=== PATIENT | male | born 1970 | race Caucasian/White ===

== ENCOUNTER 2020-07-31 06:33 | Day surgery (SDC) | payer MEDICARE ==
[~2020-07-31] VITALS: Ht 177.8 cm; Wt 102.7 kg
--- NOTE | ~2020-07-31 | HEMODYNAMI ---
PATIENT:ANTONIETTA JIMENEZ MEDICAL RECORD: [id number] : 70 LOCATION:[facility] ADMISSION DATE: 07/31/20 Generatedon:18:36 Patient name: ANTONIETTA JIMENEZ Patient #: [id number] SSN: [id number] : 1970 Date of study: 07/31/2020 Page: Of Hemodynamic Procedure Report Patient Data Patient Demographics Procedure consent was obtained First Name: ANTONIETTA Gender: Male Last Name: TONY : 1970 Patient #: [id number] Age: 50 year(s) Race: SSN: [id number] Additional ID: [id number] Contact details [address]: [address] [place] [address] State: [place] City: [place] Zip code: [address] Past Medical History Allergies Allergen Reaction Date Comments Reported Other allergy 07/31/2020 ELIS WILKERSON Admission Admission Data Admission Date: 07/31/2020 Admission Time: 6:33 Arrival Date: 07/31/2020 Arrival Time: 0:00 Admit Source: Other Insurance Payor: Medicare [facility] #: [id number] Height (in.): 70 BSA: 2.2 (m2) Height (cm.): 177.8 BMI: 32.49 (kg/m2) Weight (lbs.): 226.42 Weight (kg.): 102.7 Lab Results Lab Result Date: 07/31/2020 Lab Result Time: 0:00 Biochemistry Name Units Result Min Max BUN mg/dl 16 --(---*)-- 7 18 Creatinine mg/dl 1.1 --(--*-)-- 0.6 1.3 eGFR ml/min 73.36112 *-(----)-- 90 120 NONAFRICAN CBC Name Units Result Min Max Hemoglobin g/dl 15.3 --(-*--)-- 13.5 17.5 Procedure Procedure Types Cath Procedure Diagnostic Procedure LHC LHC w/Coronaries Sedation Charges Moderate Sedation 10-24 minutes PCI Procedure Coronary Stent Coronary Stent Initial Hemochron ACT Test Procedure Description Procedure Date Procedure Date: 07/31/2020 Procedure Start Time: 8:06 Procedure End Time: 8:31 Procedure Staff Name Function Ky Washington MD Performing Physician Estevan Washington RN Nurse Anju Oleary RT Scrub Bella Diallo RT Monitor Indication Chest pain Procedure Data Cath Procedure Fluoroscopy Diagnostic fluoroscopy Total fluoroscopy Time: 5.1 time: 5.1 min min Diagnostic fluoroscopy Total fluoroscopy dose: dose: 1092 mGy 1092 mGy Contrast Material Contrast Material Type Amount (ml) Isovue 300 127 Entry Location Entry Primary Successful Side Size Upsize Upsize Entry Closure Murphy ccessful Closure Location (Fr) 1 (Fr) 2 (Fr) Remarks Device Remarks Radial Right 6 Fr Mechanical artery Short Compression Estimated blood loss: 5 ml Diagnostic catheters Device Type Used For End Catheter Placement DIAGNOSTIC Henderson 110cm 5 Multi-vessel Fr catheter ([id number]) Angiography Procedure Complications No complications Procedure Medications Medication Administration Route Dosage 0.9% NaCl I.V. 100 ml/hr Oxygen etCO2 Nasal cannula 2 l/min Heparin Flush Bag added to field 2 bags (1000units/500ml NS) Lidocaine 2% added to field 20 Radial Cocktail added to field 1 syringe (Verapamil 2mg/Nitro 400mcg/Heparin 1500units) Versed I.V. 2 mg Fentanyl I.V. 100 mcg Radial Cocktail I.A. 1 syringe (Verapamil 2mg/Nitro 400mcg/Heparin 1500units) Heparin Bolus I.V. 21402 units Nitroglycerin IC/IA I.C. 100 mcg Plavix P.O. 600 mg Hemodynamics Rest BSA: 2.2 (m2) HGB: 15.3 (g/dl) O2 Consumption: Estimated: 275.18 (ml/min) O2 Con sumption indexed: Estimated:125.08 (ml/min/m) Heart Rate: 84 (bpm) Pressure Samples Time Site Value (mmHg) Purpose Heart Use Rate(bpm) 8:09 LV 157/34,46 Snapshot 86 8:09 AO 154/42(70) Pullback 90 8:09 LV 149/15,36 Pullback 90 Gradients Valve Time Site 1 Site 2 Mean SEP/DFP Peak To Heart Use (mmHg) (sec/min) Peak Rate (mmHg) (bpm) Aortic 8:09 LV AO 0 28 0 90 149/15,36 154/42(70) Calculations Valve P-P Mean Valve Index Valve Source Name Gradient Area Flow (cm2) Aortic 0 0 0 0 Snapshots Pre Cath Intra NCS Post Cath Vital Signs Time Heart Resp SPO2 etCO2 NIBP (mmHg) Rhythm Pain Sedation Rate (ipm) (%) (mmHg) Status Level (bpm) 7:53:01 84 19 100 25.7 137/88(106) NSR 0 (11) 10(A) , No pain 7:57:15 82 11 94 34.1 122/84(106) NSR 0 (11) 10(A) , No pain 8:01:25 80 19 92 0 112/77(97) NSR 0 (11) 10(A) , No pain 8:05:33 82 10 92 40.1 117/80(97) NSR 0 (11) 10(A) , No pain 8:09:45 98 10 93 30.3 99/60(94) NSR 0 (11) 10(A) , No pain 8:13:50 85 11 92 34.8 112/73(92) NSR 0 (11) 10(A) , No pain 8:18:04 81 11 93 38.6 111/63(97) NSR 0 (11) 10(A) , No pain 8:22:18 88 12 92 0 105/63(86) NSR 0 (11) 10(A) , No pain 8:26:26 87 12 93 22.7 107/69(88) NSR 0 (11) 10(A) , No pain 8:30:32 87 12 95 17.4 116/77(97) NSR 0 (11) 10(A) , No pain Medications Time Medication Route Dose Verified Delivered Reason Note s Effectiveness by by 7:56:39 0.9% NaCl I.V. 100 Estevan Estevan Per physician ml/hr Felix Washington RN RN 7:56:49 Oxygen etCO2 2 l/min Estevan Estevan for low 02 sats Nasal Felix Washington cannula RN RN 7:57:02 Heparin Flush added 2 bags Estevan Estevan used for Bag to Felix Washington procedure (1000units/500ml field RN RN NS) 7:57:13 Lidocaine 2% added 20ml Estevan Estevan for local to vial Lorigan Lorigan anesthetic RN RN 7:57:23 Radial Cocktail added 1 Estevan Estevan used for (Verapamil to syringe Felix Washington procedure 2mg/Nitro field RN RN 400mcg/Heparin 1500units) 7:57:33 Versed I.V. 2 mg Estevan Estevan for sedation Felix Washington RN RN 7:57:42 Fentanyl I.V. 100 mcg Estevan Estevan for sedation Felix Washington RN RN 8:08:04 Radial Cocktail I.A. 1 Estevan Ky for (Verapamil syringe Felix Washington MD vasodilation 2mg/Nitro RN 400mcg/Heparin 1500units) 8:18:06 Heparin Bolus I.V. 10,000 Estevan Estevan for units Felix Washington anticoagulation RN RN 8:20:33 Nitroglycerin I.C. 100 mcg Estevan Ky for IC/IA Felix Washington MD vasodilation RN 8:28:02 Plavix P.O. 600 mg Estevan Ky for Felix Washington MD antiplatelet RN therapy Procedure Log Time Note 7:14:05 Diagnostic Cath Status : Elective 7:14:15 Indication : Chest pain 7:17:51 Arrival Date: 07/31/2020 12:00:00 AM 7:17:52 Admit Source: Other 7:17:58 Insurance Payor : Medicare 7:18:17 Patient Height : 70 inches 7:18:19 Patient Weight : 226.42 lbs 7:18:25 ACC Patient presents with Stable Angina CCS Anginal Class 2--Slight limitation of ordinary activity. 7:18:27 Procedure Status Elective Heart Cath (OP). 7:18:29 Time tracking: Regular hours (M-F 7:00 - 5:00) 7:18:34 Plan of Care:Hemodynamics will remain stable., Cardiac rhythm will remain stable., Comfort level will be maintained., Respiratory function will remain adequate., Patient/ family verbilizes understanding of procedure., Procedure tolerated without complication., Recovers from procedure without complications.. 7:18:47 H&P Date Dictated: 07/30/2020 Within 30 days and on chart.. 7:18:49 Pre-procedure instructions explained to patient. 7:18:50 Pre-op teaching completed and patient verbalized understanding. 7:18:53 Family unavailable. 7:18:56 Patient NPO since Midnight. 7:19:41 Patient allergic to Other allergyCODEINE, PCN 7:31:15 Estevan Washington RN sent for patient. Start room use. 7:51:25 Patient received from Pre/Post Procedure Room to CCL 1 Alert and oriented. Tansferred to table in Supine position. 7:51:27 Signed procedure consent form obtained from patient. 7:51:28 Warm blankets applied, and aranza hugger turned on for patient comfort. 7:51:29 Correct patient and procedure confirmed by team. 7:51:34 ECG and BP/O2 sat monitors applied to patient. 7:51:35 Baseline sample Acquired. 7:51:35 Vital chart was started 7:51:40 Rhythm: sinus tachycardia 7:51:45 Is the patient allergic to Iodine/contrast media? No. 7:51:46 Was the patient premedicated? Yes 7:51:47 Is patient on blood thinner?No 7:51:49 Patient diabetic? No. 7:51:52 Previous problem with sedation/anesthesia? No ? 7:52:01 Snore? No 7:52:03 Sleep apnea? No 7:52:05 Deviated septum? No 7:52:07 Opens mouth fully? Yes 7:52:08 Sticks out tongue? Yes 7:52:10 Airway obstruction? No ? 7:52:16 Dentures? Yes IN TIGHT 7:52:27 Pre procedure: right dorsailis pedis pulse 2+ Normal; easily identifiable; not easily obliterated 7:52:29 Pre procedure: left dorsailis pedis pulse 2+ Normal; easily identifiable; not easily obliterated 7:52:33 Patient pain scale 0/10 ?. 7:52:43 IV patent on arrival in right antecubital with 0.9% NaCl at O. 7:52:45 Lab results completed and on chart. 7:52:53 Right Radial & Right Groin area was prepped with chlora-prep and draped in sterile fashion 7:52:54 Alarms reviewed by R. N. 7:52:55 Sharps counted by scrub and verified by R.N. 7:52:57 Physician arrived 7:52:57 --------ALL STOP TIME OUT------ 7:52:57 Final Timeout: patient, procedure, and site verified with staff and physician. All members of the team are in agreement. 7:52:59 Right Radial & Right Groin site verified by team. 7:53:05 Fire Safety Assessment: A--An alcohol-based skin anteseptic being used preoperatively., C--Open oxygen or nitrous oxide is being used., D--An ESU, laser, or fiber-optic light is being used. 7:53:08 Physical assessment completed. ASA score P 2 - A patient with mild systemic disease as per Ky Washington MD. 7:53:16 Sedation plan: IV Moderate Sedation Medication:Versed, Fentanyl 7:56:39 0.9% NaCl 100 ml/hr I.V. was administered by Estevan Washington RN; Per physician; Verbal order read back and verified. 7:56:49 Oxygen 2 l/min etCO2 Nasal cannula was administered by Estevan Washington RN; for low 02 sats; Verbal order read back and verified. 7:57:02 Heparin Flush Bag (1000units/500ml NS) 2 bags added to field was administered by Estevan Washington RN; used for procedure; Verbal order read back and verified. 7:57:13 Lidocaine 2% 20ml vial added to field was administered by Estevan Washington RN; for local anesthetic; Verbal order read back and verified. 7:57:23 Radial Cocktail (Verapamil 2mg/Nitro 400mcg/Heparin 1500units) 1 syringe added to field was administered by Estevan Washington RN; used for procedure; Verbal order read back and verified. 7:57:33 Versed 2 mg I.V. was administered by Estevan Washington RN; for sedation; Verbal order read back and verified. 7:57:42 Fentanyl 100 mcg I.V. was administered by Estevan Washington RN; for sedation; Verbal order read back and verified. 7:57:54 2) 60-89 Mildly reduced kidney function, and other findings (as for stage 1) point to kidney disease. 7:58:20 Maximum allowable contrast dose (3.7 X eGFR X 0.75)208 ml. 7:59:14 Lab Result : BUN 16 mg/dl 7:59:14 Lab Result : eGFR NONAFRICAN 73.90845 ml/min 7:59:14 Lab Result : Hemoglobin 15.3 g/dl 7:59:14 Lab Result : Creatinine 1.1 mg/dl 8:01:06 Risk of Mortality: 0.1 8:01:09 Risk of blood transfusion: 0.1 8:01:13 Risk of DELORIS: 0.2 8:01:21 Use device set Radial Dx or PCI 8:01:22 ACIST Syringe (30443) opened to sterile field. 8:01:23 Medline Cath Pack ([id number]) opened to sterile field. 8:01:23 Bag Decanter (2002S) opened to sterile field. 8:01:23 ACIST Hand Control (85059) opened to sterile field. 8:01:24 ACIST Manifold (86281) opened to sterile field. 8:01:24 Tegaderm 4 x 4 (1626W) opened to sterile field. 8:01:25 MBrace Wrist Support (262291595) opened to sterile field. 8:01:26 NEEDLE Cook 21G 4cm Radial (W98250) opened to sterile field. 8:01:27 SHEATH 6FR RAIN (4300138) opened to sterile field. 8:01:28 EMERALD Guide Wire (924-642) opened to sterile field. 8:05:27 Procedure started. 8:05:27 Full Disclosure recording started 8:06:19 Local anesthetic to right radial artery with Lidocaine 2% by Ky Washington MD.INITIAL ACCESS ONLY 8:07:51 A 6 Fr Short sheath was inserted into the Right Radial artery 8:08:04 Radial Cocktail (Verapamil 2mg/Nitro 400mcg/Heparin 1500units) 1 syringe I.A. was administered by Ky Washington MD; for vasodilation; Verbal order read back and verified. 8:09:19 A DIAGNOSTIC Henderson 110cm 5 Fr catheter (287752) was advanced over the wire and used for Multi-vessel Angiography. 8:09:24 LV hemodynamics recorded. 8:09:26 Injector settings: Ml/sec: 5, Volume: 15, 8:09:34 EF : 60 % 8:10:10 LCA angiography performed. 8:10:13 Injector settings: Ml/sec: 3, Volume: 6, 8:12:28 RCA angiography performed. 8:13:43 Injector settings: Ml/sec: 3, Volume: 6, 8:13:46 Catheter removed. 8:15:20 INFLATOR Merit BasixCompak (HJ0436) opened to sterile field. 8:15:20 BMW 300cm Dexter 2 J wire (5747107F) opened to sterile field. 8:15:21 TUBING High Pressure Extension Tubing (Felix) (AH6745R) opened to sterile field. 8:15:21 GUIDE 6FR AR 1.0 catheter ([id number]) opened to sterile field. 8:15:27 Proceeding to intervention. 8:15:34 ACC Pre-intervention ОЛЕГ Flow is 3. 8:15:42 Pre PCI Site: [place] mRCA has 90% stenosis. 8:15:46 6 Fr AR 1 guide catheter was inserted over the wire 8:15:51 BMW wire advanced. 8:18:06 Heparin Bolus 10,000 units I.V. was administered by Estevan Washington RN; for anticoagulation; Verbal order read back and verified. 8:19:46 Wire advanced across lesion. 8:20:33 Nitroglycerin IC/IA 100 mcg I.C. was administered by Ky Washington MD; for vasodilation; Verbal order read back and verified. 8:25:02 Place stent Inflation Number: 1 A LAWANDA OTW 2.5 x 22 stent ([id number]) was prepped and advanced across the Prox RCA 90. The stent was deployed at 12 JAMI for 0:10 (min:sec) 0. 8:25:58 Stent catheter was removed intact over wire. 8:25:58 Wire removed. 8:25:59 Guide catheter removed. 8:26:29 Sheath removed intact; hemostasis achieved with Mechanical Compression to the Right Radial artery. 8:26:32 Procedure ended.(Physican Out) 8:26:50 Fluoroscopy time 05.10 minutes. 8:26:54 Fluoroscopy dose: 1092 mGy 8:26:54 Flurop Dose total: 1092 8:27:00 Dose Area Product 00691 mGy/cm. 8:27:06 Contrast amount:Isovue 300 127ml. 8:27:12 Maximum allowable dose exceeded? No. 8:27:14 Sharps counted by scrub and verified by R.N. 8:28:02 Plavix 600 mg P.O. was administered by Ky Washington MD; for antiplatelet therapy; Verbal order read back and verified. 8:28:02 [place] band inflated with 10cc of air. 8:28:05 ZEPHYR REGULAR TR BAND (574421) opened to sterile field. 8:28:55 Insertion/operative site no bleeding no hematoma. 8:29:07 Post right radial artery:stable 8:29:09 Post Procedure Pulses reassessed and unchanged 8:29:13 Post procedure rhythm: unchanged. 8:29:16 Estimated blood loss: 5 ml 8:29:17 Post procedure instruction explained to patient.Patient verbalizes understanding. 8:29:18 Patient needs reinforcement of post procedure teaching. 8:30:45 Procedure type changed to Cath procedure, Diagnostic procedure, LHC, [facility] w/Coronaries, Sedation Charges, Moderate Sedation 10-24 minutes, PCI procedure, Coronary Stent, Coronary Stent Initial, Hemochron ACT Test 8:30:46 Procedure and supply charges have been captured, reviewed, submitted and are correct. 8:30:51 Procedure Complication : No complications 8:31:21 Vital chart was stopped 8:31:27 [facility] Findings: MVD- PCI performed (see procedure note) 8:31:28 Operative report dictated upon procedure completion. 8:31:29 See physician's report for complete and final results. 8:31:32 Report given to Pre/Post Procedure Room. 8:31:35 Patient transfered to Pre/Post Procedure Room with Stretcher. 8:31:39 Procedure ended. 8:31:39 Full Disclosure recording stopped 8:31:50 ACC-PCI Only Patient was given prescriptions, or instructed by Ky Washington MD to start/continue the following medications upon discharge: Plavix 8:31:51 End room use (Document Last) 8:32:21 ACT drawn and resulted at >400 high out of range seconds. (normal therapeutic range 180-240 seconds). Intervention Summary Intervention Notes Time ActionType Lesion and Equipment Action# Pressure Duration Attributes Used 8:25:02 Place stent Prox RCA LAWANDA OTW 2.5 1 12 00:10 x 22 stent ([id number]) Device Usage Item Name Manufacture Quantity Catalog Hospital Part Current Mini mal Lot# / Number Charge Number Stock Stock Serial# Code ACIST Syringe Acist 1 70379 419525 055640 818309 20 (14436) Etece Medline Cath Medline 1 [id number] 571709 13055 125449 5 Pack ([id number]) Bag Decanter Microtek 1 2001S 159146 48435 351594 5 (2001S) Medical Inc. ACIST Hand Acist 1 20083 152692 530043 059553 5 Control Medical (37895) Systems Inc ACIST Acist 1 61336 111005 024354 475758 5 Manifold Medical (46885) Systems Inc Tegaderm 4 x 3M 1 1626W 532704 262706 245790 5 4 (1626W) MBrace Wrist Advanced 1 140-0250-00 718251 76771 487729 5 Support Vascular (879683514) Dynamics NEEDLE Fifty100 Medical 1 Q02823 105240 987169 176612 5 21G 4cm Radial (C06286) SHEATH 6FR Cardinal 1 1701382 602881 5904511 347497 5 [facility] (5533672) EMERALD Guide Cardinal 1 502-382 623075 951966 125717 5 [facility] (882-746) DIAGNOSTIC Terumo 1 40-1713 887599 131895 768104 5 Henderson 110cm 5 Fr catheter (592665) INFLATOR Merit 1 MC1464 799120 501138 403229 15 [facility] Medical BasixCompak (OH1078) BMW 300cm Tay 1 [id number] 367265 867382 721953 5 Dexter 2 J Vascular wire (6025882F) TUBING High Merit 1 EU5226N 259554 16209 398071 10 Pressure Medical Extension Tubing (Washington) (YL8267Y) GUIDE 6FR AR Medtronic 1 BJ6SV40 038750 89996 472847 1 1.0 catheter (BN0EU15) LAWANDA OTW 2.5 Medtronic 1 [id number] 326853 69060 708072 5 [id number] x 22 stent ([id number]) ZEPHYR Cardinal 1 075172 683611 6896775 814657 5 REGULAR TR Health BAND (901066) Signature Audit Adams Stage Time Signature Unsigned Intra-Procedure 07/31/2020 Bella Diallo 8:35:42 AM RT(R) Intra-Procedure 07/31/2020 Estevan 8:36:02 AM Felix GABRIEL Intra-Procedure 07/31/2020 Ky Washington MD 8:36:24 AM [place] [id number] [place] [address]
[~2020-07-31 06:33] MED LIST: ALBUTEROL SULF8.5 GM INH; CLOZARIL100 MG; FLUVOXAMINE MA100 M1; HYDROXYZINE HCL50 MG; OMNICEF300 MG PO; TRAZODONE HCL150 MG
[2020-07-31] MEDS ORDERED: TRAZODONE HCL100 MG PO (06:59)
[2020-07-31] MEDS ORDERED: CLOZAPINE200 MG PO (07:01)
[2020-07-31] MEDS ORDERED: FLUVOXAMINE MAL50 MG PO (07:02)
[2020-07-31] MEDS ORDERED: VISTARIL50 MG PO (07:03)
[2020-07-31 07:14] VITALS: BP 128/87; Ht 177.8 cm; Wt 102.7 kg
[2020-07-31 07:46] LABS: ALT (SGPT) 31 U/L (10-68); CALC OSMOLALITY 284 mosm/kg (275-300); CALCIUM 8.6 mg/dL (8.5-10.1); CARBON DIOXIDE 24.6 mmol/L (21.0-32.0); CHLORIDE - SERUM 106 mmol/L (98-107); CHOL - HDL RATIO 7.7 ratio (2.3-4.9); CHOLESTEROL, TOTAL 232 mg/dL (0-200); CREATININE - SERUM 1.1 mg/dL (0.6-1.3); GLUCOSE 123 mg/dL (74-106); HDL CHOLESTEROL 30 mg/dL (32-96); LDL CHOLESTEROL 130 mg/dL (0-100); LDL-HDL RATIO 4.3 ratio (1.5-3.5); POTASSIUM - SERUM 3.8 mmol/L (3.5-5.1); SODIUM 142 mmol/L (136-145); TRIGLYCERIDE 360 mg/dL (30-200); UREA NITROGEN 16 mg/dL (7-18); eGFR NON AFRICAN AMERICAN 75 mL/min (90-120)
[2020-07-31 07:48] LABS: BASOPHILS 0.4 % (0-2); HEMATOCRIT 46.9 % (42.0-54.0); HEMOGLOBIN 15.3 g/dL (13.5-17.5); IMMATURE GRANULOCYTES 0.5 % (0-5); LYMPHOCYTE ABS# 2.44 10x3/uL (1.32-3.57); LYMPHOCYTES 22.7 % (15-50); MCH 27.1 pg (26.0-34.0); MCHC 32.6 g/dL (31.0-37.0); MCV 83.2 fL (80.0-100.0); MEAN PLATELET VOLUME 9.7 fL (7.4-10.4); MONOCYTES 6.8 % (2-11); NEUTROPHIL ABS# 7.29 10x3/uL (1.78-5.38); NEUTROPHILS 67.6 % (40-80); PLATELET COUNT 252 10x3/uL (130-400); RBC 5.64 10x6/uL (4.20-6.10); RDW 15.6 % (11.5-14.5); WBC 10.8 10x3/uL (4.8-10.8)
--- NOTE | 2020-07-31 08:45 | NUR ---
PT REC'D TO CATH RECOVERY ROOM 9 VIA STRETCHER. MONITORS ESTAB. SEE POST CATH FINE DINING SERVER. ALARMS ON AND C/L IN REACH.
[2020-07-31] MEDS ORDERED: PLAVIX75 MG PO (08:56)
[2020-07-31] MEDS ORDERED: BAYER CHEWABLE81 MG PO (08:56)
[2020-07-31] MEDS ORDERED: PRAVACHOL20 MG PO (08:57)
--- NOTE | 2020-07-31 09:00 | NUR ---
R WRIST Z BAND SITE C/D/I. NO S/S BLEEDING OR HEMATOMA. R ARM/HAND WARM WITH PALP PULSES AND BRISK CAP REFILL. VSS. PT RESTING QUIETLY, ALARMS ON AND C/L IN REACH.
--- NOTE | 2020-07-31 09:30 | NUR ---
R WRIST Z BAND SITE C/D/I, NO S/S BLEEDING OR HEMATOMA. PULSES PALP. VSS. PT RESTING QUIETLY, NO S/S DISTRESS. ALARMS ON AND C/L IN REACH.
--- NOTE | 2020-07-31 09:45 | NUR ---
R WRIST Z BAND SITE C/D/I, NO S/S BLEEDING, PULSES PALP. VSS. ALARMS ON AND C/L IN REACH.
--- NOTE | 2020-07-31 10:15 | NUR ---
R WRIST SITE C/D/I, NO S/S BLEEDING OR HEMATOMA. PULSES PALP. PT SNORING. VSS. ALARMS ON AND C/L IN REACH.
--- NOTE | 2020-07-31 10:36 | NUR ---
I SPOKE WITH PTS MOTHER RE: DISCHARGE INSTRUCTIONS/MEDICATIONS AND PLAN FOR D/C HOME AT 1230. WILL CALL IN NEW PRESCRIPTIONS TO [facility] ON [facility] PER PT REQUEST.
--- NOTE | 2020-07-31 10:50 | NUR ---
DR. RAGLAND IN TO SEE PT.
--- NOTE | 2020-07-31 11:00 | NUR ---
5 CC AIR REMOVED FROM Z BAND, NO S/S BLEEDING OR HEMATOMA. PULSES PALP. R ARM/HAND WARM WITH PALP PULSES. C/L IN REACH.
--- NOTE | 2020-07-31 11:09 | NUR ---
NEW PRESCRIPTIONS CALLED IN TO [facility] ON [facility]. PT SITTING UP IN BED, GIVEN COLA PER REQUEST, REFUSED SANDWICH AT THIS TIME. C/L IN REACH.
--- NOTE | 2020-07-31 11:25 | NUR ---
ALL AIR REMOVED FROM Z BAND, NO S/S BLEEDING OR HEMATOMA. PULSES PALP. PT INSTRUCTED ON S/S TO REPORT TO NURSE. ALARMS ON AND C/L IN REACH.
--- NOTE | 2020-07-31 11:45 | NUR ---
R WRIST SITE C/D/I, NO S/S BLEEDING OR HEMATOMA. PULSES PALP. VSS. PT DENIES PAIN OR NEEDS. C/L IN REACH.
--- NOTE | 2020-07-31 12:10 | NUR ---
R WRIST SITE C/D/I, NO S/S BLEEDING. PIV D/C'D INTACT, DSG APPLIED. PT ALLOWED UP TO GET DRESSED AND GO TO BR INDEPENDENTLY.
--- NOTE | 2020-07-31 12:24 | NUR ---
ALL DISCHARGE INSTRUCTIONS REVIEWED WITH PT, INCLUDING RESTRICTIONS, MEDS AND F/U APPT. PT VERBALIZES UNDERSTANDING.
--- NOTE | 2020-07-31 12:28 | NUR ---
R Z BAND OFF, DSG APPLIED, ARM BOARD IN PLACE. PT D/C'D VIA WC TO PRIVATE VEHICLE WITH ALL PAPERWORK AND BELONGINGS. D/C INSTRUCTIONS REVIEWED WITH MOTHER AT CAR.
== END 2020-07-31 12:28 | disposition home or self-care (01) ==
LOC: D.CATH 06:33
PROVIDERS: ATTEND Internal Medicine Cardiovascular Disease
DX: I21.4 Non-ST elevation (NSTEMI) myocardial infarction (principal); R07.9 Chest pain, unspecified; I25.110 Atherosclerotic heart disease of native coronary artery with unstable angina pectoris
CPT/HCPCS: 93458; C9600

== ENCOUNTER → 2020-11-14 18:07 | Outpatient (CLI) | payer MEDICARE ==
[2020-07-31 07:14] VITALS: BMI 32.4
[~2020-11-14 18:07] MED LIST changes: +BAYER CHEWABLE81 MG PO; +CLOZAPINE200 MG PO; +FLUVOXAMINE MAL50 MG PO; +PLAVIX75 MG PO; +PRAVACHOL20 MG PO; +TRAZODONE HCL100 MG PO; +VISTARIL50 MG PO
[2020-11-14 19:33] LABS: ALT (SGPT) 36 U/L (10-68); CHOL - HDL RATIO 8.1 ratio (2.3-4.9); CHOLESTEROL, TOTAL 251 mg/dL (0-200); HDL CHOLESTEROL 31 mg/dL (32-96)
[2020-11-14 19:34] LABS: TRIGLYCERIDE 597 mg/dL (30-200)
== END | disposition home or self-care (01) ==
LOC: D.LABREF 18:07
PROVIDERS: ATTEND Nurse Practitioner
DX: E78.5 Hyperlipidemia, unspecified (principal)